=== PATIENT | male | born 1945 | race Caucasian/White ===

== ENCOUNTER → 2018-02-15 | Outpatient (CLI) | payer MEDICARE ==
--- NOTE | 2018-02-15 09:46 | US ---
EXAMINATION TYPE: US duplex aorta DATE OF EXAM: 02/15/2018 COMPARISON: NONE CLINICAL HISTORY: Z13.6 screening for cardiovascular disorders. EXAM MEASUREMENTS: Abdominal Aorta: Proximal: 2.3 x 2.4 cm Mid: 2.0 x 2.1 cm Distal: 1.9 x 1.9 cm Bifurcation: 0.7 x 0.8 cm 0.7 x 0.8 cm Limited due to bowel gas. Aorta appears to have moderate atherosclerotic changes, but appears to have normal course and caliber . Incidental findings: Umbilical herniation of bowel , see images 48 through 62. IMPRESSION: 1. Moderate atherosclerosis of the abdominal aorta without sonographic evidence of abdominal aortic a neurysm. 2. Incidental note of a periumbilical hernia.
== END | disposition home or self-care (01) ==
LOC: RADUSWWP 08:07
PROVIDERS: ATTEND Family Medicine
DX: I70.0 Atherosclerosis of aorta (principal); K42.9 Umbilical hernia without obstruction or gangrene
CPT/HCPCS: 93979

== ENCOUNTER → 2018-09-05 | Outpatient (CLI) | payer MEDICARE ==
--- NOTE | 2018-09-05 08:34 | US ---
EXAMINATION TYPE: US abdomen complete DATE OF EXAM: 09/05/2018 COMPARISON: CLINICAL HISTORY: R10.9 Abd pain. Right flank pain, no surgeries, NPO EXAM MEASUREMENTS: Liver Length: 17.9 cm Gallbladder Wall: 0.2 cm Spleen: 10.0 cm Right Kidney: 11.5 x 4.2 x 5.4 cm Left Kidney: 11.5 x 4.2 x 5.4 cm Limited exam due to overlying bowel gas and patient body habitus Pancreas: Obscured by bowel gas Liver: Increased attenuation, decreased visualization of vessels suggestive of fatty infiltrate. Ap pears heterogenous and slightly heterogenous. Gallbladder: Echogenic focus with ringdown artifact = 0.3 x 0.4 cm. This is likely due to adenomyos is. Evidence for sonographic Rice's sign: neg CBD: Obscured by overlying bowel gas Spleen: wnl Right Kidney: Simple appearing cyst in upper pole/mid = 1.1 x 1.0 x 0.9 cm Left Kidney: wnl Upper IVC: Obscured by overlying bowel gas Abd Aorta: Obscured by overlying bowel gas There is limitation on the examination due to bowel gas. IMPRESSION: 1. Limited exam due to bowel gas and body habitus. 2. Right renal cyst. 3. Mild fatty infiltration of the liver. Mild hepatomegaly is present. 4. Adenomyosis of the gallbladder. Differential could include a polyp.
== END | disposition home or self-care (01) ==
LOC: RADUSWWP 07:19
PROVIDERS: ATTEND Family Medicine
DX: N28.1 Cyst of kidney, acquired (principal); K76.0 Fatty (change of) liver, not elsewhere classified; R16.0 Hepatomegaly, not elsewhere classified; K82.8 Other specified diseases of gallbladder
CPT/HCPCS: 76700

== ENCOUNTER → 2019-09-11 | Outpatient (CLI) | payer MEDICARE ==
--- NOTE | 2019-09-11 16:45 | US ---
EXAMINATION TYPE: US venous doppler duplex LE RT DATE OF EXAM: 09/11/2019 4:37 PM COMPARISON: NONE CLINICAL HISTORY: R22.40 Swelling Lower Leg. SIDE PERFORMED: Right TECHNIQUE: The lower extremity deep venous system is examined utilizing real time linear array sonog jefferson with graded compression, doppler sonography and color-flow sonography. VESSELS IMAGED: External Iliac Vein (EIV) Common Femoral Vein Deep Femoral Vein Greater Saphenous Vein * Femoral Vein Popliteal Vein Small Saphenous Vein * Proximal Calf Veins (* superficial vessels) Right Leg: Negative for DVT At the patient's area of pain in the right calf, there is a complex area visualized measuring 4.9 x 0 .8 x 4.5 cm IMPRESSION: No evidence of deep venous thrombosis. There is elongated fluid collection in the calf th at could be a intramuscular hematoma or seroma.
== END | disposition home or self-care (01) ==
LOC: RADUSWWP 16:20
PROVIDERS: ATTEND Nurse Practitioner Family
DX: R22.41 Localized swelling, mass and lump, right lower limb (principal)

== ENCOUNTER 2020-04-17 07:54 | Day surgery (SDC) | payer MEDICARE ==
[2020-04-15 14:46] VITALS: BMI 38.7
[~2020-04-17 07:54] MED LIST: ALPRAZolam 0.25 MG TAB PO PRN; ALPRAZolam 0.5 MG TAB PO PRN; ASPIRIN 325 MG TAB PO ONE; ATORVASTATIN 80 MG TAB PO ONE; NITROGLYCERIN SL TABS 0.4 MG TAB SUBLINGUAL PRN; SODIUM CHLORIDE 0.9% 1,000 ML in EMPTY BAG 1 BAG IV ONE
[2020-04-17 08:46] VITALS: TEMP 98.1
[2020-04-17 08:46] LABS: Basophils # (A) 0.1 k/uL (0-0.2); Basophils % (A) 1 %; Eosinophils # (A) 0.3 k/uL (0-0.7); Eosinophils % (A) 5 %; HCT 44.6 % (39.0-53.0); HGB 14.7 gm/dL (13.0-17.5); Lymphocytes # (A) 1.8 k/uL (1.0-4.8); Lymphocytes % (A) 28 %; MCH 32.3 pg (25.0-35.0); MCHC 32.9 g/dL (31.0-37.0); MCV 98.2 fL (80.0-100.0); Mean Platelet Volume 7.9; Monocytes # (A) 0.4 k/uL (0-1.0); Monocytes % (A) 7 %; Neutrophils # (A) 3.8 k/uL (1.3-7.7); Neutrophils % (A) 58 %; Platelet Count 193 k/uL (150-450); RBC 4.54 m/uL (4.30-5.90); RDW 12.6 % (11.5-15.5); WBC 6.6 k/uL (3.8-10.6)
[2020-04-17 08:55] LABS: Calcium 9.2 mg/dL (8.4-10.2); Potassium 5.4 mmol/L (3.5-5.1)
[2020-04-17] MEDS ORDERED: MIDAZOLAM 2 MG/2 ML VIAL IVP ONE (09:57)
[2020-04-17] MEDS ORDERED: LIDOCAINE 1% INJ 10MG/ML (20 ML MDV) SQ ONE (09:57)
[2020-04-17] MEDS: VERAPAMIL SYRINGE (5 MG/10 ML) INTRAARTER ONE ×2 (09:59→10:11)
[2020-04-17] MEDS ORDERED: HEPARIN SODIUM 1,000 UN/ML (10ML VL) IV ONE (10:00)
[2020-04-17] MEDS ORDERED: IOPAMIDOL-370 100ML BTL INJ ONE (10:14)
[2020-04-17] MEDS ORDERED: SODIUM CHLORIDE 0.9% 1,000 ML IV SCH (10:15)
[2020-04-17] MEDS ORDERED: RX INFO: IV CONTRAST WAS GIVEN 1 EACH MISC MISCELLANE PRN (10:15)
[2020-04-17 10:27] VITALS: RESP 16
--- NOTE | 2020-04-17 11:19 | CC ---
CARDIAC CATHETERIZATION REPORT DATE OF SERVICE: 04/17/2020 PERFORMING PHYSICIAN: Martin Kamara MD. PROCEDURE PERFORMED: 1. Selective right and left coronary angiogram. 2. Left heart catheterization. INDICATION: This is a 74-year-old gentleman with coronary artery disease and prior stenting of the RCA was experiencing symptoms of shortness of breath with exertion and he underwent myocardial perfusion imaging stress test and that revealed an anterior ischemia. Because of that, heart catheterization was advised. APPROACH: Right radial artery. COMPLICATION: None. LEVEL OF SEDATION: Moderate with sedation length of 22 minutes. PROCEDURE DESCRIPTION: After obtaining an informed consent, the patient was brought to the cardiac bobcat driver/labor. The right radial artery was cannulated using micropuncture technique, the micropuncture wire passed easily, then I placed a 5-Andor[place] sheath. Subsequently, I gave the patient 2 mg of verapamil IA and 10,000 units of heparin IV. After that, I did selective right and left coronary angiogram with JR4 and JL3.5 catheters. Left heart catheterization was performed using a pigtail catheter. The procedure was completed without any complication. SELECTIVE CORONARY ANGIOGRAM: 1. The right coronary artery is a large caliber vessel, it is a dominant vessel. The RCA appeared to have mild disease only. The RCA distally bifurcates into PDA and PLV branches, both appeared to be angiographically normal. 2. The left main appeared to have mild disease only. It bifurcates into LCX and LAD. 3. The LCX is a large caliber vessel, it is a nondominant vessel. The LCX has mild disease only. 4. The LAD, the proximal LAD appeared to be calcified with mild disease only. 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 The LAD distally appeared to be angiographically normal. The LAD in the proximal portion seems to be stented. HEMODYNAMICS: The LVEDP was 8 mmHg without significant gradient across the aortic valve. CONCLUSION: 1. Calcified right and left coronary systems. 2. Patent stent in the proximal right coronary artery. 3. Patent stent in the proximal LAD. There was intermediate lesion involving the mid LAD with aneurysmal formation. 4. Normal LVEDP. POSTPROCEDURE MANAGEMENT: 1. Medical treatment. 2. Follow up with the patient. MMODL / IJN: [id number] /
[2020-04-17 11:39] VITALS: BP 96/53; PULSE 66
== END 2020-04-17 14:55 | disposition home or self-care (01) ==
LOC: CATHCVL 07:54
PROVIDERS: ATTEND Internal Medicine Interventional Cardiology
DX: I25.110 Atherosclerotic heart disease of native coronary artery with unstable angina pectoris (principal); I25.41 Coronary artery aneurysm; I25.9 Chronic ischemic heart disease, unspecified; I10 Essential (primary) hypertension; E78.00 Pure hypercholesterolemia, unspecified; I35.1 Nonrheumatic aortic (valve) insufficiency; E78.5 Hyperlipidemia, unspecified; I73.9 Peripheral vascular disease, unspecified; E66.9 Obesity, unspecified; Z68.39 Body mass index [BMI] 39.0-39.9, adult; Z95.5 Presence of coronary angioplasty implant and graft; Z72.0 Tobacco use; Z79.82 Long term (current) use of aspirin; Z79.899 Other long term (current) drug therapy; Z88.1 Allergy status to other antibiotic agents; Z88.8 Allergy status to other drugs, medicaments and biological substances; Z91.040 Latex allergy status; Z82.49 Family history of ischemic heart disease and other diseases of the circulatory system
CPT/HCPCS: 93458; 80048; 85025; C1769; C1894; J2250; J2001; J1644; Q9967

== ENCOUNTER 2020-07-01 18:39 | Observation (INO) | payer MEDICARE ==
[2020-07-01] MEDS ORDERED: SODIUM CHLORIDE 0.9% 1,000 ML IV STA (19:02)
[2020-07-01] MEDS ORDERED: METOCLOPRAMIDE 5 MG/ML 2 ML VIAL IVP STA (19:04)
--- NOTE | 2020-07-01 19:06 | ED ---
General Adult HPI - General Chief complaint: Shortness of Breath Stated complaint: SOB Time Seen by Provider: 07/01/20 18:58 Source: patient, RN/MD (I did speak with transferring physician, Dr. Holt), EMS, RN notes reviewed, old records reviewed Mode of arrival: ambulatory Limitations: no limitations - History of Present Illness Initial comments: Patient is a pleasant 74-year-old male presenting to the emergency Department as a transfer from [facility]. Patient was diagnosed with pneumonia. Patient did have blood cultures and lactic acid done. Patient received Rocephin and azithromycin. Patient did also receive magnesium and potassium. Patient is a daily drinker. Patient states he has been having cough and shortness of breath over the past week. Patient also has been fatigued. Patient complains of nausea and has vomited. - Related Data Home Medications Medication Instructions Recorded Confirmed Aspirin [Adult Low Dose Aspirin EC] 81 mg PO DAILY 02/11/19 04/17/20 Enalapril [Vasotec] 10 mg PO HS 02/11/19 04/17/20 Febuxostat [Uloric] 80 mg PO HS 02/11/19 04/17/20 Gabapentin [Neurontin] 300 mg PO TID 02/11/19 04/17/20 Hydrocodone/Acetaminophen [[place] 1 tab PO QID 02/11/19 04/17/20 5-325] Isosorbide Mononitrate [Isosorbide 30 mg PO QAM 02/11/19 04/17/20 Mononitrate ER] Pantoprazole [Protonix] 40 mg PO QAM 02/11/19 04/17/20 atenoloL [Tenormin] 50 mg PO HS 02/11/19 04/17/20 Alirocumab [Praluent Pen] 75 mg SQ Q14D 04/15/20 04/15/20 Enalapril [Vasotec] 5 mg PO QAM 04/15/20 04/17/20 L.acidoph,Paracasei, B.lactis 1 each PO DAILY 04/15/20 04/17/20 [Probiotic] Moisture Eye Drops 1 drop BOTH EYES DIRECTED 04/15/20 Nitroglycerin Sl Tabs [Nitrostat] 0.4 mg SUBLINGUAL Q5M PRN 04/15/20 04/15/20 Rosuvastatin Calcium [Crestor] 5 mg PO WEEKLY 04/15/20 04/17/20 diphenhydrAMINE [Benadryl] 50 mg PO HS PRN 04/15/20 04/17/20 Allergies Allergy/AdvReac Type Severity Reaction Status Date / Time latex Allergy Unknown Rash/Hives Verified 07/01/20 18:46 adhesive Allergy Rash/Hives Verified 07/01/20 18:46 ciprofloxacin [From Cipro] Allergy Rash/Hives Verified 07/01/20 18:46 scallops Allergy Nausea & Verified 07/01/20 18:46 Vomiting/diarrhea Review of Systems ROS Statement: Those systems with pertinent positive or pertinent negative responses have been documented in the HPI. ROS Other: All systems not noted in ROS Statement are negative. Constitutional: Reports: fever, chills Eyes: Denies: eye pain ENT: Denies: ear pain Respiratory: Reports: cough. Denies: dyspnea Cardiovascular: Denies: chest pain Endocrine: Reports: fatigue Gastrointestinal: Reports: nausea, vomiting. Denies: abdominal pain Genitourinary: Denies: dysuria Musculoskeletal: Denies: back pain Skin: Denies: rash Neurological: Denies: weakness Past Medical History Past Medical History: Coronary Artery Disease (CAD), Chest Pain / Angina, GERD/ Reflux, Hyperlipidemia, Hypertension, Sleep Apnea/CPAP/BIPAP Additional Past Medical History / Comment(s): hx gout, spinal stenosis, neuropathy feet, uses c-pap machine, hx colon polyp, states he needs to have gall bladder removed., states right total knee scheduled for March., See Cardiology H & P. History of Any Multi-Drug Resistant Organisms: None Reported Past Surgical History: Heart Catheterization, Heart Catheterization With Stent, Orthopedic Surgery Additional Past Surgical History / Comment(s): rt knee 2019 ,one stent, david eyelid sx, david cataract, hx of cardiac stents 2009 & 2018. Past Anesthesia/Blood Transfusion Reactions: No Reported Reaction Additional Past Anesthesia/Blood Transfusion Reaction / Comment(s): . Date of Last Stent Placement:: 2009 Past Psychological History: No Psychological Hx Reported Smoking Status: Former smoker Past Alcohol Use History: Daily Past Drug Use History: None Reported - Past Family History Father Family Medical History: Cancer Additional Family Medical History / Comment(s): thyroid General Exam Limitations: no limitations General appearance: alert, in no apparent distress Head exam: Present: normocephalic Eye exam: Present: normal appearance Neck exam: Present: normal inspection Respiratory exam: Present: rhonchi Cardiovascular Exam: Present: regular rate, normal rhythm Expanded Peripheral pulses: 2+: Dorsalis Pedis (R), Dorsalis Pedis (L) GI/Abdominal exam: Present: soft. Absent: tenderness Extremities exam: Present: normal inspection Neurological exam: Present: alert Psychiatric exam: Present: normal affect, normal mood Skin exam: Present: normal color, other (Refill less than 2 seconds) Course Vital Signs 07/01/20 18:43 Temperature 99.3 F Pulse Rate 75 Respiratory 20 Rate Blood Pressure 122/72 O2 Sat by Pulse 99 Oximetry - Reevaluation(s) Reevaluation #1: 07/01/20 19:10 Case was discussed with Dr. Glasgow, who will admit covering for Dr. Ovalle. 07/01/20 19:13 Patient did meet sepsis criteria prior to arrival. Patient did receive lactic acid and blood cultures and IV antibiotics. Patient received at least thousand liters based on records from [facility]. Patient will be provided next 1.5 L. Patient needs to 0.1 L based on a DL body weight of 70 kg. Critical Care Time Critical Care Time: Yes Total Critical Care Time: 31 Disposition Clinical Impression: Severe sepsis, Pneumonia Disposition: ADMITTED IP TO THIS HOSP Condition: Serious Is patient prescribed a controlled substance at d/c from ED?: No Referrals: Emerson Armendariz MD [Primary Care Provider] - 1-2 days Decision Time: 19:14
[2020-07-01] MEDS ORDERED: THIAMINE 100 MG/ML 2 ML VIAL IM STA (19:08)
[2020-07-01] MEDS ORDERED: LORazepam 2 MG/ML INJ IV PRN ×4 (19:08)
[2020-07-01] MEDS ORDERED: IPRATROPIUM-ALBUTEROL 3 ML NEB INHALATION PRN (19:10)
[2020-07-01] MEDS ORDERED: PNEUMONIA PROTOCOL UTILIZED 1 EACH MISC PO PRN (19:10)
[2020-07-01] MEDS ORDERED: SODIUM CHLORIDE 0.9% 500 ML 500 ML IV STA (19:12)
[2020-07-01] MEDS ORDERED: IPRATROPIUM-ALBUTEROL 3 ML NEB INHALATION STA (19:50)
--- NOTE | 2020-07-01 19:53 | ED ---
General Adult HPI - General Chief complaint: Shortness of Breath Stated complaint: SOB Time Seen by Provider: 07/01/20 18:58 Source: patient, family, RN notes reviewed Mode of arrival: ambulatory Limitations: no limitations - History of Present Illness Initial comments: Patient is a pleasant 74-year-old male presenting to the emergency Department with with complaints of difficulty in breathing. Onset of symptoms was a few days ago. Symptoms have progressively worsened since that time. Symptoms do worsen with exertion. Patient did have fever this morning. Patient has had urinary frequency with small amounts. Patient did have catheter placed by primary care physician today. Patient had urinalysis done showing many white blood cells. Patient does have history of CHF. Patient is a former smoker, no history of COPD. Patient did have some leg swelling however that improved with Lasix. Patient did have right knee surgery done 9 weeks ago. - Related Data Home Medications Medication Instructions Recorded Confirmed Aspirin [Adult Low Dose Aspirin EC] 81 mg PO DAILY 02/11/19 07/01/20 Febuxostat [Uloric] 80 mg PO HS 02/11/19 07/01/20 Hydrocodone/Acetaminophen [[place] 1 tab PO QID 02/11/19 07/01/20 5-325] Isosorbide Mononitrate [Isosorbide 30 mg PO QAM 02/11/19 07/01/20 Mononitrate ER] Pantoprazole [Protonix] 40 mg PO DAILY 02/11/19 07/01/20 atenoloL [Tenormin] 50 mg PO HS 02/11/19 07/01/20 Alirocumab [Praluent Pen] 75 mg SQ Q14D 04/15/20 07/01/20 Enalapril [Vasotec] 5 mg PO QAM 04/15/20 07/01/20 Nitroglycerin Sl Tabs [Nitrostat] 0.4 mg SUBLINGUAL Q5M PRN 04/15/20 07/01/20 Amoxic-Pot Clav 875-125Mg 1 tab PO BID 07/01/20 07/01/20 [Augmentin 875-125] Furosemide [Lasix] 40 mg PO DAILY 07/01/20 07/01/20 Meloxicam 15 mg PO DAILY 07/01/20 07/01/20 Tamsulosin HCl [Flomax] 0.8 mg PO DAILY 07/01/20 07/01/20 Allergies Allergy/AdvReac Type Severity Reaction Status Date / Time latex Allergy Unknown Rash/Hives Verified 07/01/20 20:53 adhesive Allergy Rash/Hives Verified 07/01/20 20:53 ciprofloxacin [From Cipro] Allergy Rash/Hives Verified 07/01/20 20:53 scallops Allergy Nausea & Verified 07/01/20 20:53 Vomiting/diarrhea Review of Systems ROS Statement: Those systems with pertinent positive or pertinent negative responses have been documented in the HPI. ROS Other: All systems not noted in ROS Statement are negative. Constitutional: Reports: as per HPI, fever Eyes: Denies: eye pain ENT: Denies: ear pain Respiratory: Reports: cough (Mild nonproductive cough), dyspnea Cardiovascular: Denies: chest pain Endocrine: Reports: fatigue Gastrointestinal: Denies: abdominal pain Genitourinary: Denies: dysuria Musculoskeletal: Denies: back pain Skin: Denies: rash Neurological: Denies: weakness Past Medical History Past Medical History: Coronary Artery Disease (CAD), Chest Pain / Angina, GERD/Reflux, Hyperlipidemia, Hypertension, Sleep Apnea/CPAP/BIPAP Additional Past Medical History / Comment(s): hx gout, spinal stenosis, neuropathy feet, uses c-pap machine, hx colon polyp, states he needs to have gall bladder removed., states right total knee scheduled for March., See Cardiology H & P. History of Any Multi-Drug Resistant Organisms: None Reported Past Surgical History: Heart Catheterization, Heart Catheterization With Stent, Orthopedic Surgery Additional Past Surgical History / Comment(s): rt knee 2019 ,one stent, david eyelid sx, david cataract, hx of cardiac stents 2009 & 2018. Past Anesthesia/Blood Transfusion Reactions: No Reported Reaction Additional Past Anesthesia/Blood Transfusion Reaction / Comment(s): . Date of Last Stent Placement:: 2009 Past Psychological History: No Psychological Hx Reported Smoking Status: Former smoker Past Alcohol Use History: Daily Past Drug Use History: None Reported - Past Family History Father Family Medical History: Cancer Additional Family Medical History / Comment(s): thyroid General Exam Limitations: no limitations General appearance: alert, in no apparent distress Head exam: Present: normocephalic Eye exam: Present: normal appearance Neck exam: Present: normal inspection Respiratory exam: Present: wheezes (More so the bases) Cardiovascular Exam: Present: regular rate, normal rhythm GI/Abdominal exam: Present: soft. Absent: tenderness, guarding, rebound, rigid Extremities exam: Present: normal inspection. Absent: pedal edema, calf tenderness Neurological exam: Present: alert Psychiatric exam: Present: normal affect, normal mood Skin exam: Present: normal color Course Vital Signs 07/01/20 07/01/20 07/01/20 18:43 19:44 20:01 Temperature 99.3 F Pulse Rate 75 72 Respiratory 20 24 16 Rate Blood Pressure 122/72 O2 Sat by Pulse 99 Oximetry 07/01/20 20:17 Temperature Pulse Rate 75 Respiratory 16 Rate Blood Pressure O2 Sat by Pulse Oximetry - Reevaluation(s) Reevaluation #1: 07/01/20 21:30 Patient does meet sepsis criteria diagnosed at 2130. Blood culture and lactic acid have been ordered. IV antibiotics will be ordered. EKG Findings - EKG Comments: EKG Findings:: Sinus rhythm with a rate of 79. QRS 74. QT 382. QTC 438. Left axis. Normal QRS. No acute ST change Medical Decision Making - Medical Decision Making Patient reevaluated and updated. Patient has elevated d-dimer. Unable to do CT secondary to renal insufficiency. V/Q will be ordered. Patient was started on heparin. Dr. Glasgow has been paged for admission covering for Dr. Armendariz. Case was discussed with Dr. Glasgow, who will admit - Lab Data Result diagrams: 07/01/20 20:03 07/01/20 20:03 Lab Results 07/01/20 07/01/20 07/01/20 Range/Units 20:03 20:03 20:03 WBC 12.8 H (3.8-10.6) k/uL RBC 4.59 (4.30-5.90) m/uL Hgb 14.8 (13.0-17.5) gm/dL Hct 45.4 (39.0-53.0) % MCV 98.8 (80.0-100.0) fL MCH 32.3 (25.0-35.0) pg MCHC 32.7 (31.0-37.0) g/dL RDW 13.1 (11.5-15.5) % Plt Count 141 L (150-450) k/uL Neutrophils % 82 % Lymphocytes % 7 % Monocytes % 6 % Eosinophils % 2 % Basophils % 1 % Neutrophils # 10.5 H (1.3-7.7) k/uL Lymphocytes # 0.9 L (1.0-4.8) k/uL Monocytes # 0.8 (0-1.0) k/uL Eosinophils # 0.3 (0-0.7) k/uL Basophils # 0.1 (0-0.2) k/uL PT 9.9 (9.0-12.0) sec INR 0.9 (<1.2) APTT 23.6 (22.0-30.0) sec D-Dimer 2.68 H (<0.60) mg/L FEU Sodium (137-145) mmol/L Potassium (3.5-5.1) mmol/L Chloride (98-107) mmol/L Carbon Dioxide (22-30) mmol/L Anion Gap mmol/L BUN (9-20) mg/dL Creatinine (0.66-1.25) mg/dL Est GFR (CKD-EPI)AfAm (>60 ml/min/1.73 sqM) Est GFR (CKD-EPI)NonAf (>60 ml/min/1.73 sqM) Glucose (74-99) mg/dL Plasma Lactic Acid Maulik (0.7-2.0) mmol/L Calcium (8.4-10.2) mg/dL Total Bilirubin (0.2-1.3) mg/dL AST (17-59) U/L ALT (4-49) U/L Alkaline Phosphatase (38-126) U/L NT-Pro-B Natriuret Pep pg/mL Total Protein (6.3-8.2) g/dL Albumin (3.5-5.0) g/dL Urine Color Dark Yellow Urine Appearance Turbid (Clear) Urine pH 5.5 (5.0-8.0) Ur Specific [place] 1.028 (1.001-1.035) Urine Protein 2+ H (Negative) Urine Glucose (UA) Negative (Negative) Urine Ketones Trace H (Negative) Urine Blood Moderate H (Negative) Urine Nitrite Negative (Negative) Urine Bilirubin Negative (Negative) Urine Urobilinogen 3.0 (<2.0) mg/dL Ur Leukocyte Esterase Large H (Negative) Urine RBC 90 H (0-5) /hpf Urine WBC 110 H (0-5) /hpf Urine WBC Clumps Many H (None) /hpf Ur Squamous Epith Cells 2 (0-4) /hpf Calcium Oxalate Crystal Many H (None) /hpf Amorphous Sediment Rare H (None) /hpf Urine Bacteria Moderate H (None) /hpf Hyaline Casts 43 H (0-2) /lpf Granular Casts 32 (0) /lpf Urine Mucus Few H (None) /hpf 07/01/20 07/01/20 07/01/20 Range/Units 20:03 20:03 20:03 WBC (3.8-10.6) k/uL RBC (4.30-5.90) m/uL Hgb (13.0-17.5) gm/dL Hct (39.0-53.0) % MCV (80.0-100.0) fL MCH (25.0-35.0) pg MCHC (31.0-37.0) g/dL RDW (11.5-15.5) % Plt Count (150-450) k/uL Neutrophils % % Lymphocytes % % Monocytes % % Eosinophils % % Basophils % % Neutrophils # (1.3-7.7) k/uL Lymphocytes # (1.0-4.8) k/uL Monocytes # (0-1.0) k/uL Eosinophils # (0-0.7) k/uL Basophils # (0-0.2) k/uL PT (9.0-12.0) sec INR (<1.2) APTT (22.0-30.0) sec D-Dimer (<0.60) mg/L FEU Sodium 131 L (137-145) mmol/L Potassium 5.0 (3.5-5.1) mmol/L Chloride 96 L (98-107) mmol/L Carbon Dioxide 25 (22-30) mmol/L Anion Gap 10 mmol/L BUN 35 H (9-20) mg/dL Creatinine 2.66 H (0.66-1.25) mg/dL Est GFR (CKD-EPI)AfAm 26 (>60 ml/min/1.73 sqM) Est GFR (CKD-EPI)NonAf 23 (>60 ml/min/1.73 sqM) Glucose 113 H (74-99) mg/dL Plasma Lactic Acid Maulik 1.4 (0.7-2.0) mmol/L Calcium 9.0 (8.4-10.2) mg/dL Total Bilirubin 1.1 (0.2-1.3) mg/dL AST 24 (17-59) U/L ALT 13 (4-49) U/L Alkaline Phosphatase 70 (38-126) U/L NT-Pro-B Natriuret Pep 788 pg/mL Total Protein 6.9 (6.3-8.2) g/dL Albumin 4.3 (3.5-5.0) g/dL Urine Color Urine Appearance (Clear) Urine pH (5.0-8.0) Ur Specific [place] (1.001-1.035) Urine Protein (Negative) Urine Glucose (UA) (Negative) Urine Ketones (Negative) Urine Blood (Negative) Urine Nitrite (Negative) Urine Bilirubin (Negative) Urine Urobilinogen (<2.0) mg/dL Ur Leukocyte Esterase (Negative) Urine RBC (0-5) /hpf Urine WBC (0-5) /hpf Urine WBC Clumps (None) /hpf Ur Squamous Epith Cells (0-4) /hpf Calcium Oxalate Crystal (None) /hpf Amorphous Sediment (None) /hpf Urine Bacteria (None) /hpf Hyaline Casts (0-2) /lpf Granular Casts (0) /lpf Urine Mucus (None) /hpf - Radiology Data Radiology results: image reviewed (Chest x-ray shows no acute process) Disposition Clinical Impression: Urinary tract infection, Renal insufficiency, Dyspnea Disposition: ADMITTED IP TO THIS HOSP Is patient prescribed a controlled substance at d/c from ED?: No Referrals: Emerson Armendariz MD [Primary Care Provider] - 1-2 days Decision Time: 21:28
[2020-07-01] MEDS ORDERED: AZITHROMYCIN 500 MG in SODIUM CHLORIDE 0.9% 250 ML IVPB SCH (20:00)
[2020-07-01 20:29] LABS: Basophils # (A) 0.1 k/uL (0-0.2); Basophils % (A) 1 %; Eosinophils # (A) 0.3 k/uL (0-0.7); Eosinophils % (A) 2 %; HCT 45.4 % (39.0-53.0); HGB 14.8 gm/dL (13.0-17.5); Lymphocytes # (A) 0.9 k/uL (1.0-4.8); Lymphocytes % (A) 7 %; MCH 32.3 pg (25.0-35.0); MCHC 32.7 g/dL (31.0-37.0); MCV 98.8 fL (80.0-100.0); Mean Platelet Volume 7.7; Monocytes # (A) 0.8 k/uL (0-1.0); Monocytes % (A) 6 %; Neutrophils # (A) 10.5 k/uL (1.3-7.7); Neutrophils % (A) 82 %; Platelet Count 141 k/uL (150-450); RBC 4.59 m/uL (4.30-5.90); RDW 13.1 % (11.5-15.5); WBC 12.8 k/uL (3.8-10.6)
[2020-07-01 20:38] LABS: Albumin 4.3 g/dL (3.5-5.0); Total Bilirubin 1.1 mg/dL (0.2-1.3); Total Protein 6.9 g/dL (6.3-8.2)
[2020-07-01 20:55] LABS: INR 0.9 (<1.2); Partial Thromboplastin Time 23.6 sec (22.0-30.0); Prothrombin Time 9.9 sec (9.0-12.0)
[2020-07-01 21:13] LABS: Amorphous Sediment,Urine Rare /hpf; Appearance,Urine Turbid (Clear); Bacteria,Urine Moderate /hpf; Bilirubin,Urine Negative (Negative); Blood,Urine Moderate (Negative); Calcium Oxalate Crystals,Urine Many /hpf; Color,Urine Dark Yellow; Glucose,Urine (UA) Negative (Negative); Granular Casts,Urine 32 /lpf (0); Hyaline Casts,Urine 43 /lpf (0-2); Ketones,Urine Trace (Negative); Leukocyte Esterase,Urine Large (Negative); Mucus,Urine Few /hpf; Nitrite,Urine Negative (Negative); PH, Urine 5.5 (5.0-8.0); Protein,Urine 2+ (Negative); RBC,Urine 90 /hpf (0-5); Specific Gravity,Urine 1.028 (1.001-1.035); Squamous Epithelial Cell,Urine 2 /hpf (0-4); WBC,Urine 110 /hpf (0-5)
[2020-07-01 21:15] LABS: D-Dimer 2.68 mg/L FEU (<0.60)
--- NOTE | 2020-07-01 21:17 | XR ---
EXAMINATION TYPE: XR chest 2V DATE OF EXAM: 07/01/2020 CLINICAL HISTORY: Fever TECHNIQUE: Frontal and lateral views of the chest are obtained. COMPARISON: None FINDINGS: The cardiomediastinal silhouette is within normal limits for size. Pulmonary vasculature i s normal. There is no focal air space opacity, pleural effusion, or pneumothorax seen. Degenerative c hanges of the spine. IMPRESSION: No acute cardiopulmonary process.
[2020-07-01] MEDS ORDERED: HEPARIN SODIUM,PORCINE 10,000 UNIT/ML 1 ML VIAL IV ONE (21:31)
[2020-07-01] MEDS ORDERED: HEPARIN SODIUM,PORCINE 5,000 UNIT/ML 1 ML VIAL IV PRN (21:31)
[2020-07-01] MEDS ORDERED: NALOXONE 0.4 MG/ML 1 ML VIAL IV PRN (21:34)
--- NOTE | 2020-07-01 22:04 | US ---
EXAMINATION TYPE: US venous doppler duplex LE RT DATE OF EXAM: 07/01/2020 9:51 PM COMPARISON: US 2019 CLINICAL HISTORY: swelling. Knee surgery 04/23/20. Swelling. No hx of DVT. Patient takes aspirin. SIDE PERFORMED: Right TECHNIQUE: The lower extremity deep venous system is examined utilizing real time linear array sonog jefferson with graded compression, doppler sonography and color-flow sonography. VESSELS IMAGED: External Iliac Vein (EIV) Common Femoral Vein Deep Femoral Vein Greater Saphenous Vein * Femoral Vein Popliteal Vein Small Saphenous Vein * Proximal Calf Veins (* superficial vessels) Right Leg: No evidence of DVT in veins imaged at this time from prox calf veins to EIV. IMPRESSION: No evidence of deep vein thrombosis in the right leg
--- NOTE | 2020-07-01 23:54 | NM ---
EXAMINATION TYPE: NM pul vent and perfuse DATE OF EXAM: 07/01/2020 COMPARISON: NONE HISTORY: Elevated d-dimer TECHNIQUE: Utilizing inhalation of 39.3 mCi Tc 99m DTPA aerosol and intravenous injection of 5.2 mCi of Tc 99m MAA, ventilation and perfusion images are acquired post injection in multiple projections. FINDINGS: There is mild patchy decreased ventilation in the periphery of both lungs. Perfusion images show very small peripheral subsegmental perfusion defects that are smaller than the ventilation abnormalities. There is no segmental type defect. IMPRESSION: The exam shows perfusion subsegmental perfusion defects smaller than the ventilation abnormalities an d consistent with airway disease. There is a low probability of pulmonary embolism..
[2020-07-01] MEDS: SODIUM CHLORIDE 0.9% 1,000 ML IV SCH (23:56)
[2020-07-01] MEDS: HEPARIN SOD,PORK IN 0.45% NACL 25,000 UNIT in 0.45% NACL 1 250ML.BAG IV SCH (23:58)
[2020-07-02] MEDS ORDERED: PIPERACILLIN-TAZOBACTAM 3.375 GM in SODIUM CHLORIDE 0.9% 100 ML IVPB SCH ×2
[2020-07-02 05:44] LABS: INR 1.1 (<1.2); Prothrombin Time 11.3 sec (9.0-12.0)
[2020-07-02] MEDS: SODIUM CHLORIDE 0.9% 1,000 ML IV SCH ×2 (06:22→11:48)
[2020-07-02 06:48] LABS: Basophils % (A) 0 %; Eosinophils # (A) 0.1 k/uL (0-0.7); Eosinophils % (A) 1 %; HGB 13.3 gm/dL (13.0-17.5); Lymphocytes # (A) 1.4 k/uL (1.0-4.8); Lymphocytes % (A) 13 %; MCH 30.8 pg (25.0-35.0); MCHC 32.4 g/dL (31.0-37.0); MCV 95.2 fL (80.0-100.0); Mean Platelet Volume 8.3; Monocytes # (A) 0.7 k/uL (0-1.0); Monocytes % (A) 7 %; Neutrophils # (A) 8.2 k/uL (1.3-7.7); Neutrophils % (A) 76 %; Platelet Count 136 k/uL (150-450); RBC 4.31 m/uL (4.30-5.90); RDW 13.5 % (11.5-15.5); WBC 10.7 k/uL (3.8-10.6)
[2020-07-02 07:14] LABS: Albumin 3.4 g/dL (3.5-5.0); Calcium 8.1 mg/dL (8.4-10.2); Potassium 4.2 mmol/L (3.5-5.1); Total Bilirubin 0.8 mg/dL (0.2-1.3); Total Protein 5.8 g/dL (6.3-8.2)
[2020-07-02] MEDS ORDERED: THIAMINE 100 MG TAB PO SCH (07:30)
[2020-07-02] MEDS ORDERED: MULTIVITAMINS, THERA 1 EACH TAB PO SCH (09:00)
[2020-07-02] MEDS: HEPARIN SOD,PORK IN 0.45% NACL 25,000 UNIT in 0.45% NACL 1 250ML.BAG IV SCH (09:01)
[2020-07-02] MEDS ORDERED: NITROGLYCERIN SL TABS 0.4 MG TAB SUBLINGUAL PRN (11:09)
[2020-07-02] MEDS: ISOSORBIDE MONONITRATE ER 30 MG TAB.ER.24H PO SCH (11:48)
[2020-07-02] MEDS: PANTOPRAZOLE 40 MG TABLET PO SCH (11:48)
[2020-07-02] MEDS: TAMSULOSIN 0.4 MG CAP.ER.24H PO SCH (11:48)
[2020-07-02] MEDS: ASPIRIN 81 MG PO SCH (11:48)
[2020-07-02] MEDS: HYDROcodone/APAP 5-325MG 1 EACH TAB PO PRN (20:11)
[2020-07-02] MEDS: atenoloL 50 MG TAB PO SCH (20:12)
[2020-07-02] MEDS: allopurinoL 100 MG TAB PO SCH (20:12)
--- NOTE | 2020-07-02 23:34 | P.HPIM ---
History of Present Illness H&P Date: 07/02/20 Chief Complaint: feeling unwell History of presenting complaint: This is a pleasant 74-year-old patient of Dr. Armendariz. Chronic stable medical conditions include coronary artery disease with last stent over 2 years ago, GERD, hypertension, hyperlipidemia, gout, spinal stenosis, peripheral neuropathy, obstructive sleep apnea uses CPAP, pending cholecystectomy,. Patient over 8 weeks ago had right knee surgery done. For 5 days patient been feeling unwell. Had a fever up to 101 at home. No cough. Minimal shortness of breath. Patient does have chronic sinus drainage. Patient been having urinary urgency not able to hold his urine and also dysuria. Presented to ER. Found to already infected urine. Started IV ceftriaxone. Started to feel better. Review of systems: GEN.: Fevers chills tired EYES: None HEENT: None NECK: None RESPIRATORY: As above CARDIOVASCULAR: None GASTROINTESTINAL: None GENITOURINARY: As above MUSCULOSKELETAL: None LYMPHATICS: None HEMATOLOGICAL: Joint pains PSYCHIATRY: None NEUROLOGICAL: Peripheral neuropathy Past medical history to include: Coronary artery with stent 2 years ago, GERD, hyperlipidemia, hypertension, obstructive sleep apnea uses CPAP, colon polyps, osteoarthritis, in March 2020 had a cardiac catheterization. Found to have patent stents. Decision to manage medically. 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 . Started smoking at age of 16, less than pack a day, stopped smoking in 2005. Patient has 2-3 drinks a day. Physical examination: VITAL SIGNS: 100, 84, 18, 150/78, 95% room air, reported a fever of 101 at home GENERAL: BMI 38, propped up in the bed, comfortable. EYES: Pupils equal. Conjunctiva normal. HEENT: External appearance of nose and ears normal, oral cavity grossly normal. NECK: JVD not raised; masses not palpable. HEART: First and second heart sounds are normal; no edema. LUNGS: Respiratory rate normal; clear to auscultation. ABDOMEN: Soft, nontender, liver spleen not palpable, no masses palpable. PSYCH: Alert and oriented x3; mood and affect normal MUSCULAR skeletal: Evidence of OA. NEUROLOGICAL: Cranial nerves grossly intact; no facial asymmetry, power and sensation grossly intact. LYMPHATICS: No lymph nodes palpable in the axilla and neck INVESTIGATIONS, reviewed in the clinical context: White count 10.7 hemoglobin 13.3 platelets 136 potassium 4.2 bun 35 creatinine 1.94 Admission testing: Bun 35 creatinine 2.66 white count 12.8 hemoglobin 14.8 platelets 141 sodium 131 UA positive for leukoesterase, WBC, bacteria EKG tracing personally reviewed by me-normal sinus rhythm Chest x-ray film personally reviewed by me-no obvious infiltrates Venous Doppler ultrasound-negative for DVT VQ scan-Lo property for PE Creatinine 0.7 on 04/17/2020 Assessment: -Acute UTI with cystitis precipitate limited by decreased urine outflow-causing sepsis -Acute kidney injury likely ATN from sepsis with patient's creatinine being normal on March 2020. Patient also has been taking meloxicam at home. He is also on Lasix and Vasotec. -Obesity BMI 38 -Coronary artery disease with stent last stent 2 years ago -GERD -Essential hypertension -Hyperlipidemia -Obstructive sleep apnea uses CPAP machine -Primary osteoarthritis Plan: Patient to be continued on IV ceftriaxone. Normal saline. Home medications resumed. For now hold off patient's meloxicam, Lasix and Vasotec. Urine cultures pending. Blood cultures pending. Care was discussed with the patient question answered Past Medical History Past Medical History: Coronary Artery Disease (CAD), Chest Pain / Angina, GERD/Reflux, Hyperlipidemia, Hypertension, Sleep Apnea/CPAP/BIPAP Additional Past Medical History / Comment(s): hx gout, spinal stenosis, neuropathy feet, uses c-pap machine, hx colon polyp, states he needs to have gal l bladder removed., states right total knee scheduled for March., See Cardiology H & P. History of Any Multi-Drug Resistant Organisms: None Reported Past Surgical History: Heart Catheterization, Heart Catheterization With Stent, Orthopedic Surgery Additional Past Surgical History / Comment(s): rt knee 2019 ,one stent, david eyelid sx, david cataract, hx of cardiac stents 2009 & 2018. Heart cath with stent april 20 2020 Past Anesthesia/Blood Transfusion Reactions: No Reported Reaction Additional Past Anesthesia/Blood Transfusion Reaction / Comment(s): . Date of Last Stent Placement:: 2019 Past Psychological History: No Psychological Hx Reported Smoking Status: Never smoker Past Alcohol Use History: Daily Additional Past Alcohol Use History / Comment(s): drinks 2-3 drinks daily. quit smoking approx 2005, started smoking age 16, smoked less than ppd. Past Drug Use History: None Reported - Past Family History Father Family Medical History: Cancer Additional Family Medical History / Comment(s): thyroid Medications and Allergies Home Medications Medication Instructions Recorded Confirmed Type Aspirin [Adult Low Dose Aspirin EC] 81 mg PO DAILY 02/11/19 07/01/20 History Febuxostat [Uloric] 80 mg PO HS 02/11/19 07/01/20 History Hydrocodone/Acetaminophen [[place] 1 tab PO QID 02/11/19 07/01/20 History 5-325] Isosorbide Mononitrate [Isosorbide 30 mg PO QAM 02/11/19 07/01/20 History Mononitrate ER] Pantoprazole [Protonix] 40 mg PO DAILY 02/11/19 07/01/20 History atenoloL [Tenormin] 50 mg PO HS 02/11/19 07/01/20 History Alirocumab [Praluent Pen] 75 mg SQ Q14D 04/15/20 07/01/20 History Enalapril [Vasotec] 5 mg PO QAM 04/15/20 07/01/20 History Nitroglycerin Sl Tabs [Nitrostat] 0.4 mg SUBLINGUAL Q5M PRN 04/15/20 07/01/20 History Amoxic-Pot Clav 875-125Mg 1 tab PO BID 07/01/20 07/01/20 History [Augmentin 875-125] Furosemide [Lasix] 40 mg PO DAILY 07/01/20 07/01/20 History Meloxicam 15 mg PO DAILY 07/01/20 07/01/20 History Tamsulosin HCl [Flomax] 0.8 mg PO DAILY 07/01/20 07/01/20 History Allergies Allergy/AdvReac Type Severity Reaction Status Date / Time latex Allergy Unknown Rash/Hives Verified 07/01/20 20:53 adhesive Allergy Rash/Hives Verified 07/01/20 20:53 ciprofloxacin [From Cipro] Allergy Rash/Hives Verified 07/01/20 20:53 scallops Allergy Nausea & Verified 07/01/20 20:53 Vomiting/diarrhea Physical Exam Vitals: Vital Signs Temp Pulse Pulse Resp BP BP Pulse Ox 07/02/20 07:00 98.6 F 80 16 162/75 93 L 07/02/20 00:20 100.0 F H 84 18 151/78 95 07/01/20 20:17 75 16 07/01/20 20:01 72 16 07/01/20 19:44 24 07/01/20 18:43 99.3 F 75 20 122/72 99 Intake and Output 07/01/20 07/02/20 07/02/20 22:59 06:59 14:59 Intake Total 114.307 Output Total 400 Balance -285.693 Intake: Intake, IV Titration 114.307 Amount Heparin Sod,Pork in 0.45% 114.307 NaCl 25,000 unit In 0.45 % NaCl 1 250ml.bag @ 18 UNITS/KG/HR 20.412 mls/hr IV .[id number] [facility] Rx#: [id number] Output: Urine 400 Other: Weight 113.398 kg 113.398 kg Results CBC & Chem 7: 07/02/20 06:17 07/02/20 06:17 Labs: Abnormal Lab Results - Last 24 Hours (Table) 07/01/20 07/01/20 07/01/20 Range/Units 20:03 20:03 20:03 WBC 12.8 H (3.8-10.6) k/uL Plt Count 141 L (150-450) k/uL Neutrophils # 10.5 H (1.3-7.7) k/uL Lymphocytes # 0.9 L (1.0-4.8) k/uL APTT (22.0-30.0) sec D-Dimer 2.68 H (<0.60) mg/L FEU Sodium (137-145) mmol/L Chloride (98-107) mmol/L BUN (9-20) mg/dL Creatinine (0.66-1.25) mg/dL Glucose (74-99) mg/dL Calcium (8.4-10.2) mg/dL Total Protein (6.3-8.2) g/dL Albumin (3.5-5.0) g/dL Urine Protein 2+ H (Negative) Urine Ketones Trace H (Negative) Urine Blood Moderate H (Negative) Ur Leukocyte Esterase Large H (Negative) Urine RBC 90 H (0-5) /hpf Urine WBC 110 H (0-5) /hpf Urine WBC Clumps Many H (None) /hpf Calcium Oxalate Crystal Many H (None) /hpf Amorphous Sediment Rare H (None) /hpf Urine Bacteria Moderate H (None) /hpf Hyaline Casts 43 H (0-2) /lpf Urine Mucus Few H (None) /hpf 07/01/20 07/02/20 07/02/20 Range/Units 20:03 04:14 06:17 WBC 10.7 H (3.8-10.6) k/uL Plt Count 136 L (150-450) k/uL Neutrophils # 8.2 H (1.3-7.7) k/uL Lymphocytes # (1.0-4.8) k/uL APTT 117.5 H* (22.0-30.0) sec D-Dimer (<0.60) mg/L FEU Sodium 131 L (137-145) mmol/L Chloride 96 L (98-107) mmol/L BUN 35 H (9-20) mg/dL Creatinine 2.66 H (0.66-1.25) mg/dL Glucose 113 H (74-99) mg/dL Calcium (8.4-10.2) mg/dL Total Protein (6.3-8.2) g/dL Albumin (3.5-5.0) g/dL Urine Protein (Negative) Urine Ketones (Negative) Urine Blood (Negative) Ur Leukocyte Esterase (Negative) Urine RBC (0-5) /hpf Urine WBC (0-5) /hpf Urine WBC Clumps (None) /hpf Calcium Oxalate Crystal (None) /hpf Amorphous Sediment (None) /hpf Urine Bacteria (None) /hpf Hyaline Casts (0-2) /lpf Urine Mucus (None) /hpf 07/02/20 Range/Units 06:17 WBC (3.8-10.6) k/uL Plt Count (150-450) k/uL Neutrophils # (1.3-7.7) k/uL Lymphocytes # (1.0-4.8) k/uL APTT (22.0-30.0) sec D-Dimer (<0.60) mg/L FEU Sodium 132 L (137-145) mmol/L Chloride (98-107) mmol/L BUN 35 H (9-20) mg/dL Creatinine 1.94 H (0.66-1.25) mg/dL Glucose 103 H (74-99) mg/dL Calcium 8.1 L (8.4-10.2) mg/dL Total Protein 5.8 L (6.3-8.2) g/dL Albumin 3.4 L (3.5-5.0) g/dL Urine Protein (Negative) Urine Ketones (Negative) Urine Blood (Negative) Ur Leukocyte Esterase (Negative) Urine RBC (0-5) /hpf Urine WBC (0-5) /hpf Urine WBC Clumps (None) /hpf Calcium Oxalate Crystal (None) /hpf Amorphous Sediment (None) /hpf Urine Bacteria (None) /hpf Hyaline Casts (0-2) /lpf Urine Mucus (None) /hpf Microbiology - Last 24 Hours (Table) 07/01/20 20:03 Urine Culture - Preliminary Urine,Voided Thrombosis Risk Factor Assmnt - Choose All That Apply Any of the Below Risk Factors Present?: No Other Risk Factors: Yes Each Risk Factor Represents 2 Points: Age 61-74 years Thrombosis Risk Factor Assessment Total Risk Factor Score: 2 Thrombosis Risk Factor Assessment Level: Low Risk
[2020-07-03] MEDS: SODIUM CHLORIDE 0.9% 1,000 ML IV SCH ×3 (05:34→20:59)
[2020-07-03 06:53] LABS: Basophils % (A) 1 %; Eosinophils # (A) 0.4 k/uL (0-0.7); Eosinophils % (A) 5 %; HCT 40.7 % (39.0-53.0); HGB 13.1 gm/dL (13.0-17.5); Lymphocytes % (A) 14 %; MCH 32.4 pg (25.0-35.0); MCHC 32.3 g/dL (31.0-37.0); Mean Platelet Volume 8.2; Monocytes # (A) 0.4 k/uL (0-1.0); Monocytes % (A) 6 %; Neutrophils # (A) 5.1 k/uL (1.3-7.7); Neutrophils % (A) 72 %; Platelet Count 126 k/uL (150-450); RBC 4.05 m/uL (4.30-5.90)
[2020-07-03 07:10] LABS: MCV 100.4 fL (80.0-100.0)
[2020-07-03] MEDS: allopurinoL 100 MG TAB PO SCH ×2 (08:08→20:58)
[2020-07-03] MEDS: ISOSORBIDE MONONITRATE ER 30 MG TAB.ER.24H PO SCH (08:08)
[2020-07-03] MEDS: ASPIRIN 81 MG PO SCH (08:08)
[2020-07-03] MEDS: PANTOPRAZOLE 40 MG TABLET PO SCH (08:09)
[2020-07-03] MEDS: TAMSULOSIN 0.4 MG CAP.ER.24H PO SCH (08:09)
[2020-07-03 09:23] LABS: INR 0.97 (0.90-1.11); Prothrombin Time 10.4 sec (9.9-11.9)
--- NOTE | 2020-07-03 18:42 | P.PN ---
Progress Note - Text Progress Note Date: 07/03/20 Chief Complaint: feeling unwell History of presenting complaint: This is a pleasant 74-year-old patient of Dr. Armendariz. Chronic stable medical conditions include coronary artery disease with last stent over 2 years ago, GERD, hypertension, hyperlipidemia, gout, spinal stenosis, peripheral neuropathy, obstructive sleep apnea uses CPAP, pending cholecystectomy,. Patient over 8 weeks ago had right knee surgery done. For 5 days patient been feeling unwell. Had a fever up to 101 at home. No cough. Minimal shortness of breath. Patient does have chronic sinus drainage. Patient been having urinary urgency not able to hold his urine and also dysuria. Presented to ER. Found to already infected urine. Started IV ceftriaxone. Started to feel better. Admitted with acute UTI with cystitis with sepsis. Acute kidney injury-patient being on meloxicam, Vasotec and Lasix. These medications were discontinued. Started on IV fluids. IV ceftriaxone. Today-overall feeling better. Kidney function started to improve. Appetite improving. at the bedside. Review of systems: Was done for constitutional, cardiovascular, GI, pulmonary. relevant finding as above Active Medications Hydrocodone Bitart/Acetaminophen (Hydrocodone/Apap 5-325mg 1 Each Tab) 1 each PO QID PRN PRN Reason: Pain Last Admin: 07/02/20 20:11 Dose: 1 each Documented by: Allopurinol (Allopurinol 100 Mg Tab) 200 mg PO BID [facility] Last Admin: 07/03/20 08:08 Dose: 200 mg Documented by: Aspirin (Aspirin 81 Mg) 81 mg PO DAILY [facility] Last Admin: 07/03/20 08:08 Dose: 81 mg Documented by: Atenolol (Atenolol 50 Mg Tab) 50 mg PO HS [facility] Last Admin: 07/02/20 20:12 Dose: 50 mg Documented by: Ceftriaxone Sodium 1 gm/ (Sodium Chloride) 50 mls @ 100 mls/hr IVPB Q12HR [facility] Last Admin: 07/03/20 08:08 Dose: 100 mls/hr Documented by: Sodium Chloride (Saline 0.9%) 1,000 mls @ 100 mls/hr IV .Q10H [facility] Last Admin: 07/03/20 08:07 Dose: 100 mls/hr Documented by: Isosorbide Mononitrate (Isosorbide Mononitrate Er 30 Mg Tab.Er.24h) 30 mg PO QAM [facility] Last Admin: 07/03/20 08:08 Dose: 30 mg Documented by: Melatonin (Melatonin 1 Mg Tab) 2 mg PO HS [facility] Naloxone HCl (Naloxone 0.4 Mg/Ml 1 Ml Vial) 0.2 mg IV Q2M PRN PRN Reason: Opioid Reversal Nitroglycerin (Nitroglycerin Sl Tabs 0.4 Mg Tab) 0.4 mg SUBLINGUAL Q5M PRN PRN Reason: Chest Pain Pantoprazole Sodium (Pantoprazole 40 Mg Tablet) 40 mg PO DAILY [facility] Last Admin: 07/03/20 08:09 Dose: 40 mg Documented by: Tamsulosin HCl (Tamsulosin 0.4 Mg Cap.Er.24h) 0.8 mg PO DAILY [facility] Last Admin: 07/03/20 08:09 Dose: 0.8 mg Documented by: Physical examination: VITAL SIGNS: 97.8, 70, 18, 108/70, 94% room air GENERAL: Sitting up in bed, comfortable. EYES: Pupils equal. Conjunctiva normal. NECK: JVD not raised; masses not palpable. HEART: First and second heart sounds are normal; no edema. LUNGS: Respiratory rate normal; clear to auscultation. ABDOMEN: Soft, nontender, liver spleen not palpable, no masses palpable. PSYCH: Alert and oriented x3; mood and affect normal MUSCULAR skeletal: Evidence of OA. INVESTIGATIONS, reviewed in the clinical context: White count 7 hemoglobin 13.1 platelets 126 White count 10.7 hemoglobin 13.3 platelets 136 potassium 4.2 bun 35 creatinine 1.94 Admission testing: Bun 35 creatinine 2.66 white count 12.8 hemoglobin 14.8 platelets 141 sodium 131 UA positive for leukoesterase, WBC, bacteria EKG tracing personally reviewed by me-normal sinus rhythm Chest x-ray film personally reviewed by me-no obvious infiltrates Venous Doppler ultrasound-negative for DVT VQ scan-Lo property for PE Creatinine 0.7 on 04/17/2020 Assessment: -Acute UTI with cystitis precipitate limited by decreased urine outflow-causing sepsis. Urine culture negative. -Acute kidney injury likely ATN from sepsis with patient's creatinine being normal on March 2020. Patient also has been taking meloxicam at home. He is also on Lasix and Vasotec.-Improving -Obesity BMI 38 -Coronary artery disease with stent last stent 2 years ago -GERD -Essential hypertension -Hyperlipidemia -Obstructive sleep apnea uses CPAP machine -Primary osteoarthritis Plan: Another 24 hours IV ceftriaxone. Keep IV fluids running. Repeat labs in the morning. Get a nephrology consultation. Discussed with the patient and . Hopefully discharge tomorrow.
[2020-07-03] MEDS ORDERED: ZOLPIDEM 5 MG TAB PO PRN (19:21)
[2020-07-03] MEDS: atenoloL 50 MG TAB PO SCH (20:58)
[2020-07-03] MEDS ORDERED: MELATONIN 1 MG TAB PO SCH (21:00)
[2020-07-03] MEDS: HYDROcodone/APAP 5-325MG 1 EACH TAB PO PRN (21:06)
[2020-07-04] MEDS: SODIUM CHLORIDE 0.9% 1,000 ML IV SCH ×2 (06:39→13:11)
[2020-07-04 07:14] LABS: Basophils % (A) 0 %; Eosinophils # (A) 0.2 k/uL (0-0.7); Eosinophils % (A) 2 %; HCT 41.5 % (39.0-53.0); HGB 13.7 gm/dL (13.0-17.5); Lymphocytes # (A) 0.9 k/uL (1.0-4.8); Lymphocytes % (A) 11 %; MCH 32.5 pg (25.0-35.0); MCHC 33.1 g/dL (31.0-37.0); MCV 98.3 fL (80.0-100.0); Mean Platelet Volume 8.3; Monocytes # (A) 0.5 k/uL (0-1.0); Monocytes % (A) 6 %; Neutrophils # (A) 6.4 k/uL (1.3-7.7); Neutrophils % (A) 79 %; Platelet Count 155 k/uL (150-450); RBC 4.22 m/uL (4.30-5.90); RDW 12.8 % (11.5-15.5); WBC 8.1 k/uL (3.8-10.6)
[2020-07-04] MEDS: PANTOPRAZOLE 40 MG TABLET PO SCH (08:14)
[2020-07-04] MEDS: ISOSORBIDE MONONITRATE ER 30 MG TAB.ER.24H PO SCH (08:14)
[2020-07-04] MEDS: ASPIRIN 81 MG PO SCH (08:15)
[2020-07-04] MEDS: TAMSULOSIN 0.4 MG CAP.ER.24H PO SCH (08:15)
[2020-07-04] MEDS: allopurinoL 100 MG TAB PO SCH (08:15)
[2020-07-04 08:57] LABS: INR 1.01 (0.90-1.11); Prothrombin Time 10.8 sec (9.9-11.9)
[2020-07-04 09:31] LABS: African American GFR (CKD) 97.2 (60.0-200.0); Anion Gap 5.8 mmol/L (4.00-12.00); Calcium 8.4 mg/dL (8.7-10.3); Carbon Dioxide 25.2 mmol/L (21.6-31.8); Non-African American GFR(CKD) 83.8 (60.0-200.0); Potassium 4.6 mmol/L (3.5-5.5)
--- NOTE | 2020-07-04 10:46 | US ---
EXAMINATION TYPE: US venous doppler duplex LE LT DATE OF EXAM: 07/04/2020 10:32 AM COMPARISON: 07/01/2020 CLINICAL HISTORY: HIGH D DIMER . SIDE PERFORMED: Left TECHNIQUE: The lower extremity deep venous system is examined utilizing real time linear array sonog jefferson with graded compression, doppler sonography and color-flow sonography. VESSELS IMAGED: External Iliac Vein (EIV) Common Femoral Vein Deep Femoral Vein Greater Saphenous Vein * Femoral Vein Popliteal Vein Small Saphenous Vein * Proximal Calf Veins (* superficial vessels) Left Leg: Negative for DVT. Positive for SVT in the small saph vein. The small saph is enlarged with internal echoes and no flow behind knee and down to mid calf. IMPRESSION: 1. No diagnostic evidence of DVT. However, there is evidence of superficial venous thrombosis in the lesser saphenous vein.
[2020-07-04 10:52] VITALS: BP 174/108; PULSE 76; RESP 16; TEMP 98.2
--- NOTE | 2020-07-04 23:54 | P.DS ---
Providers Date of admission: 07/01/20 21:34 Attending physician: Angelo Glasgow Primary care physician: Emerson Armendariz [place] [facility] Course: Diagnoses: -Acute UTI with cystitis precipitate limited by decreased urine outflow-causing sepsis. Urine culture negative. -Acute kidney injury likely ATN from sepsis. Creatinine is back to normal -Urinary retention, he has a Davis catheter placed prior to hospitalization as per patient by his PCP Dr. Armendariz and started him on Flomax. -Obesity BMI 38 -Left leg superficial thrombophlebitis, no need for anticoagulation, continue with local measurement, patient is asymptomatic. Patient instructed to wear compression stockings daily for 1 week and follow-up with PCP -Elevated d-dimer with VQ scan: Low probability for PE. Lower extremity ultrasound: Negative for DVT in both legs -Coronary artery disease with stent last stent 2 years ago -GERD -Essential hypertension -Hyperlipidemia -Obstructive sleep apnea uses CPAP machine -Primary osteoarthritis Hospital course: This is a pleasant 74-year-old patient of Dr. Armendariz. Chronic stable medical conditions include coronary artery disease with last stent over 2 years ago, GERD, hypertension, hyperlipidemia, gout, spinal stenosis, peripheral neuropathy, obstructive sleep apnea uses CPAP, pending cholecystectomy,. Patient over 8 weeks ago had right knee surgery done. For 5 days patient been feeling unwell. Had a fever up to 101 at home. Patient been having urinary urgency not able to hold his urine and also dysuria. Presented to ER. Found to already infected urine. Started IV ceftriaxone. Patient showed interval improvement and on the day of discharge patient denies any symptoms he states his back to his normal self, he denies chest pain or dyspnea, no abdominal pain, no nausea vomiting, no change in bowel habits. He has Davis catheter which he s tates it was placed prior to hospitalization by his PCP Dr. Armendariz who started him on Flomax as well when they found him to have urinary retention during his clinic visit. Patient was instructed to follow up with urologist Dr. Berumen in 1 week after discharge and he agrees to call and make his own appointments With improvement of his infection patient is wished to oral antibiotics of cefotetan for 7 more days Problems and management plan were discussed with the patient and he verbalized understanding and acceptance Patient was found stable and can be discharged home however he needs follow-up as an outpatient. Patient was instructed to follow up with PCP Dr. Armendariz within one week and patient agrees. Patient was instructed to follow up with Dr. Wilson as above. Patient agrees to call and make his own appointments Gen: patient is a AAOx3, no distress CVS: S1-S2, RRR, no murmur Lungs: B/L CTA, no wheezing Abdomen: soft, no distention, no tenderness, positive bowel sounds. Davis catheter is in place Extremity: no leg edema or induration Time spent more than 35 minutes Plan - Discharge Summary Discharge Rx Participant: Yes New Discharge Prescriptions: New Cefuroxime Axetil [Ceftin] 500 mg PO BID 7 Days #14 tab Continue Isosorbide Mononitrate [Isosorbide Mononitrate ER] 30 mg PO QAM Hydrocodone/Acetaminophen [[place] 5-325] 1 tab PO QID atenoloL [Tenormin] 50 mg PO HS Pantoprazole [Protonix] 40 mg PO DAILY Febuxostat [Uloric] 80 mg PO HS Aspirin [Adult Low Dose Aspirin EC] 81 mg PO DAILY Enalapril [Vasotec] 5 mg PO QAM Alirocumab [Praluent Pen] 75 mg SQ Q14D Nitroglycerin Sl Tabs [Nitrostat] 0.4 mg SUBLINGUAL Q5M PRN PRN Reason: Chest Pain Furosemide [Lasix] 40 mg PO DAILY Tamsulosin HCl [Flomax] 0.8 mg PO DAILY Discontinued Amoxic-Pot Clav 875-125Mg [Augmentin 875-125] 1 tab PO BID Meloxicam 15 mg PO DAILY Discharge Medication List Aspirin [Adult Low Dose Aspirin EC] 81 mg PO DAILY 02/11/19 [History] Febuxostat [Uloric] 80 mg PO HS 02/11/19 [History] Hydrocodone/Acetaminophen [[place] 5-325] 1 tab PO QID 02/11/19 [History] Isosorbide Mononitrate [Isosorbide Mononitrate ER] 30 mg PO QAM 02/11/19 [History] Pantoprazole [Protonix] 40 mg PO DAILY 02/11/19 [History] atenoloL [Tenormin] 50 mg PO HS 02/11/19 [History] Alirocumab [Praluent Pen] 75 mg SQ Q14D 04/15/20 [History] Enalapril [Vasotec] 5 mg PO QAM 04/15/20 [History] Nitroglycerin Sl Tabs [Nitrostat] 0.4 mg SUBLINGUAL Q5M PRN 04/15/20 [History] Furosemide [Lasix] 40 mg PO DAILY 07/01/20 [History] Tamsulosin HCl [Flomax] 0.8 mg PO DAILY 07/01/20 [History] Cefuroxime Axetil [Ceftin] 500 mg PO BID 7 Days #14 tab 07/04/20 [Rx] Follow up Appointment(s)/Referral(s): Juan Mcdowell MD [STAFF PHYSICIAN] - 1 Week (urologist, for your urine davis catheter management) Emerson Armendariz MD [Primary Care Provider] - 1-2 days Patient Instructions/Handouts: Urinary Tract Infection in Men (DC), Dyspnea (DC), GONZALEZ Hose (DC) Activity/Diet/Wound Care/Special Instructions: heart healthy diet Use compression stockings daily for 1 week or until follow up with Dr. Fong, put them on during the day and take off at night. Activity is limited till you see your doctor Discharge Disposition: HOME WITH HOME HEALTH SERVICES
--- NOTE | 2020-07-06 09:01 | CDI ---
Documentation Clarification Form Date: 07/06/20 From: Brigette Carvalho CCS Phone: If you have a question about this query, please contact Frieda Sofia, Nurse Charge Rn at [phone] between 8am and 5pm. Admit Date: 07/01/20 Discharge Date: 07/04/20 Patient Name: Martín Patricia Visit Number: [id number] ATTENTION: The Clinical Documentation Specialists (CDI) and [facility] Coding Staff appreciate your assistance in clarifying documentation. Please respond to the clarification below the line at the bottom and electronically sign. The CDI & [facility] Coding staff will review the response and follow-up if needed. Please note: Queries are made part of the Legal Health Record. If you have any questions, please contact the author of this message via ITS. Dear Dr. Funes, CHF is documented in the ED notes. History/Risk Factors: CAD w/ Hx PTCA/Stent, HTN, Obesity BMI 38, DONNELL Clinical Indicators: Hx CHF VS/Pulse OX: BP 122/72, RR 20, AZ 75, O2 Sat 99 BNP: 788 Echocardiogram Results: None Chest X Ray: No acute cardiopulmonary process. Treatment: Lasix PO 40 mg Daily In your professional opinion, can you please clarify the acuity and type of CHF if known? Systolic Heart Failure: Acute Chronic Acute on Chronic Diastolic Heart Failure: Acute Chronic Acute on Chronic Systolic & Diastolic Heart Failure: Acute Chronic Acute on Chronic Heart Failure Unable to Determine Other, please specify when i saw the pt he had no acute heart failure MTDD
== END 2020-07-04 14:20 | disposition home or self-care (01) ==
LOC: EC 18:39 → 4SSUR 21:34 → INTOOBSV 21:34 → 4SSUR 07-02 00:31 → UNDODISIN 07-04 14:20
PROVIDERS: ADMIT Hospitalist; ATTEND Hospitalist
DX: A41.9 Sepsis, unspecified organism (principal); N30.90 Cystitis, unspecified without hematuria; N17.9 Acute kidney failure, unspecified; E66.9 Obesity, unspecified; Z68.38 Body mass index [BMI] 38.0-38.9, adult; R79.89 Other specified abnormal findings of blood chemistry; I25.119 Atherosclerotic heart disease of native coronary artery with unspecified angina pectoris; Z95.5 Presence of coronary angioplasty implant and graft; I80.02 Phlebitis and thrombophlebitis of superficial vessels of left lower extremity; K21.9 Gastro-esophageal reflux disease without esophagitis; E78.5 Hyperlipidemia, unspecified; G47.33 Obstructive sleep apnea (adult) (pediatric); Z99.89 Dependence on other enabling machines and devices; M19.91 Primary osteoarthritis, unspecified site; M10.9 Gout, unspecified; G62.9 Polyneuropathy, unspecified; M48.00 Spinal stenosis, site unspecified; I11.0 Hypertensive heart disease with heart failure; I50.9 Heart failure, unspecified; Z86.010 Personal history of colon polyps; Z87.891 Personal history of nicotine dependence; Z79.899 Other long term (current) drug therapy; Z79.82 Long term (current) use of aspirin; Z79.891 Long term (current) use of opiate analgesic; Z79.1 Long term (current) use of non-steroidal anti-inflammatories (NSAID); Z88.1 Allergy status to other antibiotic agents; Z91.013 Allergy to seafood; Z91.048 Other nonmedicinal substance allergy status; Z91.040 Latex allergy status; Z98.890 Other specified postprocedural states; Z96.651 Presence of right artificial knee joint; Z80.8 Family history of malignant neoplasm of other organs or systems
CPT/HCPCS: 96376; 96361; 96365; 96366 ×2; 96367; 99285; 36415; 94640; 93005; 85379; 83880; 80053 ×2; 80048; 83605; 85025 ×4; 85610 ×4; 85730 ×2; 81001; 87040; 87086; 71046; 93971 ×2; 78582; G0378 ×4; A9540; A9567; J1644 ×2; J0696 ×4

== ENCOUNTER → 2020-07-21 | Outpatient (CLI) | payer MEDICARE ==
--- NOTE | 2020-07-22 11:15 | US ---
EXAMINATION TYPE: US duplex aorta DATE OF EXAM: 07/21/2020 COMPARISON: None CLINICAL HISTORY: I71.2 Thoracic aortic aneurysm, w/o rupture. No pain. EXAM MEASUREMENTS: Abdominal Aorta: Proximal: 2.0 x 2.2 cm Mid: 1.9 x 2.2 cm Distal: 1.5 x 1.8 cm Bifurcation: Right- 1.1 x 1.4 cm Left- 1.3 x 1.2 cm Limited visualization of proximal portion of Aorta and suboptimal visualization of mid portion due to overlying bowel gas No AAA identified in portions of Aorta visualized. IMPRESSION: 1. Visualized abdominal aorta is unremarkable. There are some portions that are limited due to bowel gas.
== END | disposition home or self-care (01) ==
LOC: RADUSWWP 16:14
PROVIDERS: ATTEND Family Medicine
DX: R14.3 Flatulence (principal); I71.2 Thoracic aortic aneurysm, without rupture
CPT/HCPCS: 93979

== ENCOUNTER → 2021-02-25 | Outpatient (CLI) | payer MEDICARE ==
--- NOTE | 2021-02-25 16:55 | US ---
EXAMINATION TYPE: US kidneys/renal and bladder DATE OF EXAM: 02/25/2021 COMPARISON: 09/05/2018 CLINICAL HISTORY: N28.1 CYST OF KIDNEY. Follow up renal cyst. EXAM MEASUREMENTS: Right Kidney: 11.6 x 5.0 x 5.0 cm Left Kidney: 11.3 x 4.6 x 6.2 cm Right Kidney: Lateral midpole cystic appearing lesion = 1.3 x 1.3 x 1.0 cm. Left Kidney: Two complex cystic structures upper pole lesions seen. Largest= medial, simple appearin g = 2.2 x 2.0 x 1.9 cm. Bladder: Distended, anechoic Bilateral Jets seen No hydronephrosis or shadowing renal calculi. IMPRESSION: 1. Bilateral renal cystic structures. The left renal cystic structures are slightly complex. These ma y represent hemorrhagic cyst. Cystic renal cell carcinoma cannot entirely be excluded. A CT or MRI us ing renal protocol with IV contrast is recommended.
== END | disposition home or self-care (01) ==
LOC: RADUSWWP 12:56
PROVIDERS: ATTEND Family Medicine
DX: N28.1 Cyst of kidney, acquired (principal)
CPT/HCPCS: 76770

== ENCOUNTER → 2021-08-13 | Outpatient (CLI) | payer MEDICARE ==
[~2021-08-13] MED LIST changes: -ALPRAZolam 0.25 MG TAB PO PRN; -ALPRAZolam 0.5 MG TAB PO PRN; -ASPIRIN 325 MG TAB PO ONE; -ATORVASTATIN 80 MG TAB PO ONE; +BAMLANIVIMAB (EUA) 700 MG, ETESEVIMAB (EUA) 1,400 MG in SODIUM CHLORIDE 0.9% 50 ML IVPB ONE; -NITROGLYCERIN SL TABS 0.4 MG TAB SUBLINGUAL PRN; -SODIUM CHLORIDE 0.9% 1,000 ML in EMPTY BAG 1 BAG IV ONE; +SODIUM CHLORIDE 0.9% 50 ML IVPB ONE; +SODIUM CHLORIDE 0.9% 500 ML 500 ML in EMPTY BAG 1 BAG IV PRN
[2021-08-13 13:48] VITALS: BP 122/77; PULSE 96; RESP 16; TEMP 97.9
== END ==
LOC: PROCWHC3 13:43
PROVIDERS: ATTEND Nurse Practitioner Adult Health
DX: U07.1 COVID-19 (principal); E66.9 Obesity, unspecified; Z68.38 Body mass index [BMI] 38.0-38.9, adult; Z91.040 Latex allergy status; Z91.048 Other nonmedicinal substance allergy status; Z88.1 Allergy status to other antibiotic agents; Z87.891 Personal history of nicotine dependence
CPT/HCPCS: 96360; J3490; M0245

== ENCOUNTER → 2022-02-22 | Outpatient (CLI) | payer MEDICARE | END | disposition home or self-care (01) | LOC: RADUSWWP 10:08 | PROVIDERS: ATTEND Family Medicine | DX: G62.9 Polyneuropathy, unspecified (principal); M25.552 Pain in left hip; M25.551 Pain in right hip; Z95.828 Presence of other vascular implants and grafts | CPT/HCPCS: 93923 ==

== ENCOUNTER → 2022-02-25 | Day surgery (SDC) | payer MEDICARE ==
[2022-02-24 09:22] VITALS: BMI 38.0
[~2022-02-25] MED LIST changes: -BAMLANIVIMAB (EUA) 700 MG, ETESEVIMAB (EUA) 1,400 MG in SODIUM CHLORIDE 0.9% 50 ML IVPB ONE; +SODIUM CHLORIDE 0.9% 1,000 ML IV SCH; -SODIUM CHLORIDE 0.9% 50 ML IVPB ONE; -SODIUM CHLORIDE 0.9% 500 ML 500 ML in EMPTY BAG 1 BAG IV PRN
== END ==
LOC: CATHCVL 10:16
PROVIDERS: ATTEND Internal Medicine Interventional Cardiology
DX: R06.02 Shortness of breath (principal); R00.2 Palpitations; I10 Essential (primary) hypertension; Z53.9 Procedure and treatment not carried out, unspecified reason; E78.5 Hyperlipidemia, unspecified; Z20.822 Contact with and (suspected) exposure to COVID-19; I73.9 Peripheral vascular disease, unspecified; Z82.49 Family history of ischemic heart disease and other diseases of the circulatory system; Z72.0 Tobacco use; I25.10 Atherosclerotic heart disease of native coronary artery without angina pectoris; Z95.5 Presence of coronary angioplasty implant and graft
CPT/HCPCS: 87635

== ENCOUNTER → 2022-08-11 | Outpatient (CLI) | payer MEDICARE ==
--- NOTE | 2022-08-11 15:29 | US ---
EXAMINATION TYPE: US carotid duplex BILAT DATE OF EXAM: 08/11/2022 COMPARISON: NONE CLINICAL HISTORY: Carotid bruit TECHNIQUE: Carotid duplex ultrasound examination. Indirect Doppler criteria was utilized. FINDINGS: EXAM MEASUREMENTS: RIGHT: Peak Systolic Velocity (PSV) cm/sec ----- Right CCA: 54.6 ----- Right ICA: 38.3 ----- Right ECA: 63.2 ICA/CCA ratio: 0.7 RIGHT: End Diastole cm/sec ----- Right CCA: 12.7 ----- Right ICA: 7.6 ----- Right ECA: 12.1 LEFT: Peak Systolic Velocity (PSV) cm/sec ----- Left CCA: 47.3 ----- Left ICA: 53.6 ----- Left ECA: 117.1 ICA/CCA ratio: 1.1 LEFT: End Diastole cm/sec ----- Left CCA: 14.1 ----- Left ICA: 18.5 ----- Left ECA: 13.5 VERTEBRALS (direction of flow): Right Vertebral: Antegrade Left Vertebral: Antegrade Rhythm: Normal [employer] NOTES: Plaque visualized in bilateral carotid bulbs, bilateral ICA proximal, and bilatera l ECA proximal. Left ECA proximal elevated velocity when compared to remainder of exam. IMPRESSION: Less than 50% stenosis of the bilateral carotid bifurcations. Criteria for Assigning % of Stenosis / Diameter reduction (Estimation based on the indirect measurements of the internal carotid artery velocities (ICA PSV). 1. Normal (no stenosis)=ICA PSV < 125 cm/s: ratio < 2.0: ICA EDV<40 cm/s. 2. Less than 50% stenosis=ICA PSV < 125 cm/s: ratio < 2.0: ICA EDV<40 cm/s. 3. 50 to 69% stenosis=ICA PSV of 125 to 230 cm/s: ration 2.0 ? 4.0: ICA EDV 40-100 cm/s. 4. Greater than 70% stenosis to near occlusion= ICA PSV > 230 cm/s: ratio > 4.0: ICA EDV > 100 cm/s. 5. Near occlusion= ICA PSV velocities may be low or undetectable: variable ratio and ICA EDV. 6. Total occlusion=unable to detect flow.
== END | disposition home or self-care (01) ==
LOC: RADUSWWP 13:35
PROVIDERS: ATTEND Family Medicine
DX: I65.23 Occlusion and stenosis of bilateral carotid arteries (principal)
CPT/HCPCS: 93880